=== PATIENT | female | born 1990 | race Caucasian/White ===

== ENCOUNTER 2017-04-06 21:34 | Emergency (ER) | payer SELFPAY ==
[~2017-04-06] VITALS: Ht 162.6 cm; Wt 111.4 kg
[~2017-04-06 21:34] MED LIST: BIRTH CONTROL PATCH; CEPHALEXIN500 M1 PO; DOXYCYCLINE 10100 MG PO; DULCOLAX TAB5 MG PO; FE-2020 MG PO; MACROBID 1100 MG/CAP PO; NO HOME MEDICATIONS; NORCO 325 MG-51 TAB PO; PRENATAL1 TA3; PRENATAL1 TA7 PO; PROAIR HFA0.09 MG/AC IH; TYLENOL/CODEINE1 ML PO; VENTOLIN0.09 MG IH; ZOFRAN 4MG T4 MG/TAB PO
[2017-04-06 21:40] VITALS: TEMP 98.1
[2017-04-06] MEDS ORDERED: VITAMIN D31000 I1 PO (21:40)
[2017-04-06 21:58] LABS: BASO # 0.1 (0.0-0.2); EOS # 0.2 (0.0-0.7); EOS % 2.2 % (0-4.0); GRAN # 5.6 (1.4-6.5); GRAN % 61.1 % (42.2-75.2); HEMOGLOBIN 12.7 g/dl (12.5-16.0); LYMPH # 2.5 (1.2-3.4); MEAN CELL VOLUME 91 fl (80.0-100.0); MEAN CORPUSCULAR HEMOGLOBIN 31 pg (27.0-31.0); MEAN CORPUSCULAR HGB CONC 34 g/dl (33.0-37.0); MONO # 0.8 (0.1-0.6); MONO % 8.5 % (1.7-9.3); PLATELET COUNT 290 K/mm3 (130-400); RED BLOOD COUNT 4.05 M/mm3 (4.10-5.30); WHITE BLOOD COUNT 9.1 K/mm3 (4.8-10.8)
[2017-04-06 22:08] LABS: ADJUSTED CALCIUM 9.1 mg/dL (8.4-10.2); ALANINE AMINOTRANSFERASE 30 U/L (9-52); ALBUMIN 4.4 gm/dL (3.5-5.0); ALKALINE PHOSPHATASE 61 U/L (50-136); ANION GAP 11 mmol/L (7-16); BILIRUBIN,TOTAL 0.4 mg/dL (0.0-1.0); BLOOD UREA NITROGEN 16 mg/dL (7-17); CALCIUM 9.4 mg/dL (8.4-10.2); CARBON DIOXIDE 21 mmol/L (22-30); CHLORIDE 109 mmol/L (98-107); CREATININE, serum 0.66 mg/dL (0.52-1.25); GLUCOSE 101 mg/dL (74-106); LIPASE 92 U/L (23-300); MAGNESIUM 1.6 mg/dL (1.6-2.3); SODIUM 141 mmol/L (137-145); TOTAL PROTEIN 7.3 gm/dL (6.4-8.2)
[2017-04-06 22:10] LABS: C-REACTIVE PROTEIN < 0.5 mg/dL (0.0-0.9)
[2017-04-06 23:16] LABS: COLLECTION METHOD CLEAN CATCH
[2017-04-06] MEDS ORDERED: PHENERGAN 25 TA25 MG PO (23:40)
[2017-04-06] MEDS ORDERED: NORCO 325 MG-51 TAB PO (23:40)
[2017-04-07 00:22] LABS: MUCOUS Present /lpf; PH 6 (5-8); URINE APPEARANCE Clear; URINE BACTERIA Rare /hpf; URINE BILIRUBIN Negative (NEGATIVE); URINE BLOOD Negative (NEGATIVE); URINE COLOR Yellow; URINE GLUCOSE Negative (NEGATIVE); URINE KETONE Negative (NEGATIVE); URINE LEUKOCYTE ESTERASE Negative (NEGATIVE); URINE PROTEIN(semi-quant) Negative (NEGATIVE); URINE RBC 0-2 /hpf; URINE UROBILINOGEN >=4.0 mg/dL (NEGATIVE); URINE WBC 0-2 /hpf
[2017-04-07 00:50] VITALS: BP 111/64; PULSE 55
== END 2017-04-07 00:30 | disposition home or self-care (01) ==
LOC: COL.ER 21:34
PROVIDERS: Emergency Medicine
DX: R11.10 Vomiting, unspecified (principal); R10.9 Unspecified abdominal pain; F17.210 Nicotine dependence, cigarettes, uncomplicated; Z87.19 Personal history of other diseases of the digestive system
CPT/HCPCS: J1170; J2405; J2550; J7030; Q9967

== ENCOUNTER 2017-07-25 15:55 | Emergency (ER) | payer BC ==
[~2017-07-25] VITALS: Ht 162.6 cm; Wt 113.6 kg
[~2017-07-25 15:55] MED LIST changes: +PHENERGAN 25 TA25 MG PO; +VITAMIN D31000 I1 PO
[2017-07-25 16:03] VITALS: BP 143/68; PULSE 69; TEMP 99
[2017-07-25] MEDS ORDERED: CALCIUM CARBON650 M2 (16:09)
== END 2017-07-25 18:14 | disposition home or self-care (01) ==
LOC: COL.ER 15:55
DX: H60.92 Unspecified otitis externa, left ear (principal)